=== PATIENT | male | born 1990 | race Caucasian/White ===

== ENCOUNTER 2024-04-24 09:45 | Outpatient (AMB) | payer MEDICAID, SELFPAY ==
--- NOTE | 2024-04-24 09:46 | MHC.PC.OV ---
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: No Allergies No Known Allergies Allergy (Verified 04/24/24 10:12) Medication List - Last Reviewed 04/25/24 by Iqra Mcpherson baclofen 20 mg PO TID carvedilol 6.25 mg PO BID gabapentin 200 mg PO BID Tobacco use date assessed: 04/24/24 Dental Screening Dental Screen Date: 04/24/24 Did you have a dental visit in the last 12 months?: No Did you have a dental problem in the last 6 months where you did not have access to dental care?: No Was dental information given to patient?: Patient has dentist HPI HPI Comments History of Present Illness Details 34-year-old male presents to [facility]. Prior PCP? - [facility] Last office visit/CPE/labs - About 3 years ago Acute issue(s) - Cocaine and fentanyl overdose in 2022 resulting in anoxic brain damage and neurological symptoms. He also suffered contracture of the right lower leg for which he was on baclofen and gabapentin until he ran out 2-3 weeks ago. He notes chronic right lower leg sharp pain and tightness. He wears a brace to his right lower leg and foot. - He reports anxiety symptoms with he attributes to not having a place to live. He currently lives with his friend and has been asked to move out next week. He has a case manager specialist who is currently helping to find housing. His case manager specialist also help with transportation to appointments. Medications - None Past Medical History - Hypertension, anemia, anoxic brain damage, dysphagia, spastic hemiplegia affecting right dominant side, contracture of right elbow, contracture of right lower leg, opiate dependence in remission, anxiety, depression, fracture nasal septum at childhood. Surgical History - Nasal septum repair at childhood Family History - Mom: HTN, HLD, alcohol abuse, biaateral breast cancer, substance abuse, - MGF: Alcohol abuse Social History - Smokes 4 cigarettes daily, has been smoking on and off since he was 17 yrs old . History of vaping, denies current use. Drinks 3-4 beers monthly. Smokes couple of hits of cannabis daily. - Has been making healthy dietary choices. Exercises routinely. Sleeps an average of 6-7 hours nightly. Health maintenance - Last eye exam was a few years ago. Refer to ophthalmology. - Last dental visit was several years ago. He has a dental appointment tomorrow; encourage to follow up. - Last tetanus vaccine was in 2023. - Has not been vaccinated for the flu this season; declines vaccination. Specialists - [facility] - [facility] physiatry [facility] Medical History (Updated 04/25/24 @ 19:34 by Omi Nath CNP) Depression Anxiety Prostate troubles Imbalance Memory loss Stroke High blood pressure Broken nose Family History (Updated 04/24/24 @ 10:14 by Iqra Mcpherson) Mother Alcohol abuse Substance abuse High blood pressure High cholesterol Cancer Maternal Grandfather Alcohol abuse Social History (Updated 04/24/24 @ 10:14 by Iqra Mcpherson) Housing: House Patient Tobacco Use Status: Current everyday Tobacco user Cigarettes Per Day: 4 e-Cigarette/Vaping Use: Former Use Second Hand Smoke Exposure: No Substance Use Type: Marijuana service: No Current occupational status: disabled Current occupational exposures/hazards: No Cognitive needs: Yes (cane) Hearing needs: No Vision needs: No Questionnaire PHQ-9 Over the last 2 weeks, how often have you been bothered by any of the following problems? 1. Little interest or pleasure in doing things: not at all 2. Feeling down, depressed, or hopeless: several days 3. Trouble falling or staying asleep, or sleeping too much: several days 4. Feeling tired or having little energy: several days 5. Poor appetite or overeating: not at all 6. Feeling bad about yourself - or that you are a failure or have let yourself or your family down: not at all 7. Trouble concentrating on things, such as reading the newspaper or watching television: not at all 8. Moving or speaking so slowly that other people could have noticed. Or the opposite - being so fidgety or restless that you have been moving around a lot more than usual: not at all 9. Thoughts that you would be better off or of hurting yourself in some way: not at all Total score: 3 Depression Screening Interpretation: Negative Depression Screening Done: Yes 29075 - PHQ-9 Billing: Yes Source: Developed by Drs. Macho Manzanares, Sara Orozco, Washington Cuevas and colleagues, with an educational lucius from [employer]. Thrive Questionnaire Date Thrive assessed: 04/24/24 I am a: Patient What is your living situation today?: I do not have a steady places to live Within the past 12 months, did the food you bought not last and you didn't have the money to get more?: Never true Within the past 12 months, did you worry whether your food would run out before you got money to buy more?: Often true Do you have trouble paying for medicines?: Yes Do you have trouble getting transportation to medical appointments?: Yes Do you have trouble paying your heating and electricity bill?: Yes Do you have trouble taking care of your child, family member or friend?: No Do you have trouble with day-to-day activities such as bathing, preparing meals, shopping, managing finances, etc.?: Yes Are you currently unemployed and looking for a job?: No Are you interested in more education?: Yes Please select the resources that you would like help with: Education Currently or been in a relationship where the following occur: No concerns reported THRIVE Score: 4 AUDIT C Alcohol Use Questionnaire (AUDIT-C) 1. How often do you have a drink containing alcohol?: Monthly or less 2. How many drinks containing alcohol do you have on a typical day when you are drinking?: 3 or 4 3. How often do you have six or more drinks on one occasion?: Never Total Score: 2 Score Reviewed/Action Taken: Yes CATALINO-7 AMB Questionnaire CATALINO-7 Date CATALINO - 7 assessed: 04/19/24 Feeling nervous, anxious, or on edge: 1 = Several days Not being able to stop or control worryin = Several days Worrying too much about different things: 1 = Several days Trouble relaxin = Several days Being so restless that it is hard to sit still: 1 = Several days Becoming easily annoyed or irritable: 1 = Several days Feeling afraid as if something awful might happen: 1 = Several days Total CATALINO-7 score (0-4 normal; 5-9 mild; 10-14 moderate; 15-21 severe): 7 Source: Developed by Drs. Macho Manzanares, Sara Orozco, Washington Cuevas and colleagues, with an educational lucius from [employer]. CATALINO-7 Assessment Billing CATALINO-7 Assessment Tool: CATALINO-7 Assessment 43703 Review of Systems Const Details: Denies chills, Denies fatigue, Denies fever(s), Denies headache(s) and Denies weakness HEENT Denies change in vision, Denies dizziness, Denies headache(s), Denies hearing loss, Denies nasal congestion, Denies sinus pain, Denies sinus pressure and Denies sore throat Card Denies chest pain, Denies lightheadedness, Denies dyspnea and Denies other (palpitations) Resp Denies cough, Denies dyspnea and Denies wheezing GI Denies abdominal pain, Denies melena, Denies hematochezia, Denies change in bowel habits, Denies dyspepsia and Denies nausea Denies hematuria and Denies dysuria Musc Reports as per HPI Skin/Breast Denies rash, Denies unusual bruising and Denies wounds Neuro Reports abnormal gait, Denies dizziness, Denies headache(s), Denies memory loss, Denies numbness, Denies Sensory deficit (Neuro), Denies tingling and Denies weakness Psych Denies anxiety, Denies depression and Denies memory loss Endo Denies cold intolerance, Denies fatigue, Denies heat intolerance, Denies polydipsia and Denies polyuria Rishi/Lymph Denies easy bleeding and Denies easy bruising Aller/Immun Denies wheezing Physical exam (Primary Care) Vital Signs: Last Vital Signs Temp 97.5 F 04/24/24 10:07 Pulse 104 H 04/24/24 10:07 Resp 16 04/24/24 10:07 BP 124/71 04/24/24 10:07 Pulse Ox 98 04/24/24 10:07 Oxygen Delivery Method Room Air 04/24/24 10:07 BMI result Body Mass Index 20.3 Tobacco/Smoking Status: Tobacco use Status Tobacco use date assessed 04/24/24 04/24/24 09:53 Patient Tobacco Use Status Current everyday Tobacco 04/24/24 10:14 e-Cigarette/Vaping Use Former Use 04/24/24 10:07 PHQ-9: PHQ-9 Score PHQ-9: Total score 3 04/25/24 11:29 Depression Screening Interpretation: Negative Thrive Assessment: Date of Thrive Assessment Date Thrive assessed 04/24/24 04/24/24 10:07 Currently or been in a relationship where the following occur: No concerns reported Const Other: General: no acute distress, well developed, alert and awake Nutritional Appearance: well nourished Orientation/consciousness: patient oriented x3 [facility] Head: Yes normocephalic and Yes atraumatic Ears: hearing grossly normal bilaterally and TM's normal bilaterally General nose exam: Normal external nose present and Normal nares present Mouth: Normal oral and palatal mucosa present and moist mucous membranes Teeth and gingiva: dentition normal Throat: Yes oropharynx normal Eyes Pupils: Equal, round and reactive pupils present and Pupil accommodation reflex normal EOM: EOMs intact bilaterally Neck Neck: Yes normal visual inspection, Yes no lymphadenopathy and Yes trachea midline Thyroid: Thyroid normal Carotids: no bruits Lymphatic: no lymphadenopathy noted Chest Chest palpation & inspection: normal inspection of the chest Resp Effort & Inspection: normal respiratory effort Auscultation: clear to auscultation bilaterally Cardio Rate: regular rate Rhythm: regular rhythm Heart sounds: S1 normal heart sound present, S2 normal heart sound present, no gallops, no murmurs and no rubs Bruits: no abdominal aortic bruits and no carotid bruits GI Palpation (GI): No Abdominal aortic bruit present, Soft to palpation, nontender, No hepatosplenomegaly present and No Rebound tenderness present Auscultation: normal bowel sounds General: Yes no CVA tenderness Back/Spine/Pelvis Back: no CVA tenderness Cervical Spine: cervical ROM normal and No Cervical spine tenderness Thoracic/Lumbar Spine: thoraco-lumbar ROM normal, No pain with thoraco-lumbar ROM, No thoracic spinal tenderness and No lumbar spinal tenderness Skin General: warm and dry. Normal skin color. Normal skin turgor Lesions: no lesions Rashes: no rashes Trauma: no lacerations or abrasions Wounds: no wounds Nails: normal Neuro General: patient oriented x3, gait normal and CN's II-XI intact bilaterally Cranial nerves: Yes Equal, round and reactive pupils present Cognition (Neuro): normal cognition Gait exam (Neuro): Slight unsteady gait present Motor exam (neuro): 5/5 motor strength present throughout Sensory Exam: No Sensory deficit (Neuro) Deep tendon reflexes (DTR's): Right patellar reflex intensity grade: 2+ and Left patellar reflex intensity grade: 2+ Extrem General: Right knee and ankle/foot tenderness, Yes normal to inspection, No edema and No calf tenderness Psych Appearance: grossly normal Affect: normal affect Attitude: cooperative Thought process: Normal thought process present Coding Level of Care Code New Pt Level 4 (28589) New Pt Prev Care 18-39yr([id number] Diagnoses Normal physical examination, routine Z00.00 Chronic pain of right lower extremity M79.604; G89.29 Cigarette smoker F17.210 Eye exam, routine Z01.00 Anxiety F41.9 Depression F32.A High blood pressure I10 Laboratory tests ordered as part of a complete physical exam (CPE) Z00.00 Additional Codes CATALINO-7 Assessment Billing - CATALINO-7 Assessment Tool: CATALINO-7 Assessment 98365 ([id number]) PHQ-9 - 67432 - PHQ-9 Billing: Yes ([id number]) Assessment & Plan Assessment & Plan (1) Normal physical examination, routine: Code(s): Z00.00 - Encounter for general adult medical examination without abnormal findings Category: Medical Plan: Normal physical exam except for slight unsteady gait/limp favoring his right lower extremity which he attributes to chronic right lower leg sharp pain and tightness secondary to contracture of the right lower leg from anoxic brain injury related to cocaine and fentanyl overdose in 2022. No overt injury or trauma. He wears a brace to his right lower extremity. He uses a cane for ambulation. Instructed on safety to prevent fall and encouraged to use his cane for ambulation at all times. He brought a handicap placard form for his PCP to be completed. He has a case manager specialist who drives him to his appointments. Will review and complete paperwork for a handicap placard. Encouraged to perform lab work to 3 days before next visit. Follow-up in 6 weeks for labs review or sooner with worsening or new symptoms. Verbalized understanding and agreed with treatment plan. (2) Chronic pain of right lower extremity: Code(s): M79.604 - Pain in right leg; G89.29 - Other chronic pain Category: Medical Plan: Chronic right lower leg sharp pain and tightness secondary to contracture of the right lower leg from anoxic brain injury related to cocaine and fentanyl overdose in 2022. No overt injury or trauma. He wears a brace to his right lower extremity. He uses a cane for ambulation. Baclofen and gabapentin verified from the pharmacy and restarted; encouraged to take as prescribed. Warm/cool compresses encouraged. Instructed on safety to prevent fall and encouraged to use his cane for ambulation at all times. Follow-up with [facility] and [facility] physiatry as planned. Return with worsening or new symptoms. Verbalized understanding and agreed with treatment plan. (3) Cigarette smoker: Code(s): F17.210 - Nicotine dependence, cigarettes, uncomplicated Category: Social Hx Plan: Smokes 4 cigarettes daily, has been smoking on and off since he was 17 yrs old. Instructed on the health risks and complications of cigarette smoking and encouraged smoking cessation. Declines medication treatment for smoking cessation. Advised to follow-up as needed. Verbalized understanding and agreed with the plan. (4) Eye exam, routine: Code(s): Z01.00 - Encounter for examination of eyes and vision without abnormal findings Category: Medical Plan: Last eye exam was a few years ago. Refer to ophthalmology. (5) Anxiety: Code(s): F41.9 - Anxiety disorder, unspecified Category: Medical Plan: Controlled. PHQ-9 score is normal. CATALINO-7 score revealed mild anxiety. Routine exercise encouraged. Follow-up with symptoms or concerns. Verbalized understanding and agreed with treatment plan. (6) Depression: Code(s): F32.A - Depression, unspecified Category: Medical Plan: Plan as above. (7) High blood pressure: Code(s): I10 - Essential (primary) hypertension Category: Medical Plan: Blood pressure is controlled. Carvediol as prescribed. Will continue to monitor. (8) Laboratory tests ordered as part of a complete physical exam (CPE): Code(s): Z00.00 - Encounter for general adult medical examination without abnormal findings Category: Medical Plan: Fasting labs ordered as part of a complete physical exam. Advised to fast for at least 10 hours before getting labs drawn. May drink water Verbalized understanding and agreed with treatment plan. Orders: Orders Complete Blood Count Auto Diff 04/24/24 Z00. - Encounter for general adult medical examination without abnormal findings Lipid Panel 04/24/24 Z. - Encounter for general adult medical examination without abnormal findings UA CC w/rflx Micro + Cult 04/24/24 Z00.00 - Encounter for general adult medical examination without abnormal findings Comprehensive [place]. Panel Fast 04/24/24 Z00. - Encounter for general adult medical examination without abnormal findings TSH reflex Free T4 04/24/24 Z. - Encounter for general adult medical examination without abnormal findings Referrals Ophthalmology Referral Z01.00 - Encounter for examination of eyes and vision without abnormal findings Medications: New carvedilol 6.25 mg PO BID 30 days 60 tabs 3RF baclofen 20 mg PO TID 30 days PRN 90 tabs 1RF muscle spasticity gabapentin 200 mg (2 x 100 mg) PO BID PRN 60 caps 0RF pain
[2024-04-24 10:07] VITALS: BP 124/71; PULSE 104; RESP 16; TEMP 36.4; O2SAT 98; BMI 20.3
== END 2024-04-24 10:51 | disposition home or self-care (01) ==
PROVIDERS: PCP Nurse Practitioner Family; Visit Provider Nurse Practitioner Family
DX: Z00.00 Encounter for general adult medical examination without abnormal findings (principal); M79.604 Pain in right leg; G89.29 Other chronic pain; F17.210 Nicotine dependence, cigarettes, uncomplicated; F41.9 Anxiety disorder, unspecified; F32.A Depression, unspecified; I10 Essential (primary) hypertension

== ENCOUNTER → 2024-04-24 09:45 | Outpatient (BNVA) | payer OTHER, SELFPAY | PROVIDERS: PCP Nurse Practitioner Family; Visit Provider Nurse Practitioner Family | DX: Z00.00 Encounter for general adult medical examination without abnormal findings (principal); M79.604 Pain in right leg; G89.29 Other chronic pain; F41.9 Anxiety disorder, unspecified; F32.A Depression, unspecified; I10 Essential (primary) hypertension; F17.210 Nicotine dependence, cigarettes, uncomplicated | CPT/HCPCS: 96127; 99202; 99385 ==

== ENCOUNTER 2024-05-24 08:40 | Outpatient (REF) | payer OTHER, SELFPAY ==
[2024-05-24 08:53] LABS: MANUAL DIFF FLAG NO
[2024-05-24 08:59] LABS: Basophils Percent Auto 0.5 % (0-2); Eosinophils Absolute Auto 0.1 X10*3/uL (0.0-0.4); Eosinophils Percent Auto 1.5 % (0-4); Hematocrit 43.5 % (42.0-52.0); Hemoglobin 14.5 g/dl (14.0-18.0); Imm Gran Abs Auto 0.02 X10*3/uL (0.00-0.03); Imm Gran Pct Auto 0.3 % (0.0-0.4); Lymphocytes Absolute Auto 1.3 X10*3/uL (1.2-4.9); Mean Corpuscular HGB Conc 33.3 g/dl (31.0-36.0); Mean Corpuscular Hemoglobin 29.7 pg (27.0-33.0); Mean Corpuscular Volume 89.1 fL (80.0-98.0); Mean Platelet Volume 10.4 fL (9.4-12.4); Monocytes Absolute Auto 0.4 X10*3/uL (0.1-1.2); Monocytes Percent Auto 5.9 % (2-11); Neutrophils Absolute Auto 4.1 x10*3/uL (2.0-8.3); Neutrophils Percent Auto 69.8 % (45-73); Platelet Count 209 X10*3/uL (160-400); Red Blood Count 4.88 X10*6/uL (4.60-5.80); Red Cell Distribution Width 11.9 % (11.0-16.0); White Blood Count 5.9 X10*3/uL (4.8-10.8)
[2024-05-24 09:25] LABS: Alanine Aminotransferase 10 U/L (0-40); Albumin Level 4.5 g/dL (3.5-5.0); Alkaline Phosphatase 68 U/L (39-117); Anion Gap 10 (12-20); Aspartate Amino Transferase 16 U/L (5-37); Bilirubin Total 0.2 mg/dL (0.0-1.0); Blood Urea Nitrogen 19 mg/dL (9-16); Calcium 9.4 mg/dL (8.4-10.2); Carbon Dioxide 23 mmol/L (22-29); Chloride 111 mmol/L (96-108); Cholesterol 160 mg/dL (<200); Estimated Glomerular Filt Rate > 60; Glucose Fasting 101 mg/dL (60-99); HDL Cholesterol 45 mg/dL (>40); LDL Cholesterol Calculated 102 mg/dL (<100); Potassium 4.3 mmol/L (3.3-5.1); Sodium 140 mmol/L (135-145); Triglycerides 67 mg/dL (<150)
[2024-05-24 09:45] LABS: TSH reflex Free T4 0.64 uIU/mL (0.32-4.0)
== END 2024-05-24 08:41 | disposition home or self-care (01) ==
LOC: HO.LAB 08:40
PROVIDERS: PCP Nurse Practitioner Family; Visit Provider Nurse Practitioner Family
DX: Z00.00 Encounter for general adult medical examination without abnormal findings (principal)
CPT/HCPCS: 36415; 80053; 80061; 84443; 85025

== ENCOUNTER 2024-06-05 10:45 | Outpatient (AMB) | payer OTHER, SELFPAY ==
--- NOTE | 2024-06-05 10:48 | A.OFFPC_ITS ---
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 Allergies No Known Allergies Allergy (Verified 06/05/24 11:01) Medication List - Last Reconciled 06/05/24 by Omi Nath CNP baclofen 20 mg PO TID PRN 30 days carvedilol 6.25 mg PO BID 30 days gabapentin 200 mg (2 x 100 mg) PO BID PRN Tobacco use date assessed: 06/05/24 Dental Screening Dental Screen Date: 06/05/24 Did you have a dental visit in the last 12 months?: Yes Did you have a dental problem in the last 6 months where you did not have access to dental care?: No Was dental information given to patient?: Patient has dentist HPI HPI Comments History of Present Illness Details 34-year-old male presents for hypertensi on and review of recent labs results. He has not taken carvedilol for the past 3 weeks. He wants to come off the medication. 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 He has been taking baclofen and gabapentin for chronic right lower extremity pain. He is followed by [facility] and [facility] physiatry. He notes that he had unprotected sex over 2 years ago and therefore wants STD testing. He has not been sexually active since the last time he had unprotected sex. He denies acute symptoms. [facility] Medical History (Updated 06/05/24 @ 11:25 by Omi Nath CNP) Depression Anxiety Prostate troubles Imbalance Memory loss Stroke High blood pressure Broken nose Family History (Updated 04/24/24 @ 10:14 by Iqra Mcpherson) Mother Alcohol abuse Substance abuse High blood pressure High cholesterol Cancer Maternal Grandfather Alcohol abuse Social History (Updated 04/24/24 @ 10:14 by Iqra Mcpherson) Housing: House Patient Tobacco Use Status: Current everyday Tobacco user Cigarettes Per Day: 4 e-Cigarette/Vaping Use: Former Use Second Hand Smoke Exposure: No Substance Use Type: Marijuana service: No Current occupational status: disabled Current occupational exposures/hazards: No Cognitive needs: Yes (cane) Hearing needs: No Vision needs: No Questionnaire Thrive Questionnaire Date Thrive assessed: 04/19/24 I am a: Patient What is your living situation today?: I have a place to live, but I am worried about losing it in the future Within the past 12 months, did the food you bought not last and you didn't have the money to get more?: Sometimes True Within the past 12 months, did you worry whether your food would run out before you got money to buy more?: Sometimes True Do you have trouble paying for medicines?: Yes Do you have trouble getting transportation to medical appointments?: Yes Do you have trouble paying your heating and electricity bill?: Yes Do you have trouble taking care of your child, family member or friend?: No Do you have trouble with day-to-day activities such as bathing, preparing meals, shopping, managing finances, etc.?: I choose not to answer this question Are you currently unemployed and looking for a job?: Yes Are you interested in more education?: Yes Currently or been in a relationship where the following occur: I choose not to answer THRIVE Score: 5 CATALINO-7 AMB Questionnaire CATALINO-7 Date CATALINO - 7 assessed: 04/19/24 Source: Developed by Drs. Macho Manzanares, Sara Orozco, Washington Cuevas and colleagues, with an educational lucius from [employer]. Review of Systems Const Details: Const Denies chills, Denies fatigue, Denies fever(s), Denies headache(s) and Denies weakness ENT Denies dizziness and Denies headache(s) Card Denies chest pain, Denies lightheadedness, Denies dyspnea and Denies other (Palpitations) Resp Denies cough, Denies dyspnea, Denies wheezing and Denies other ( shortness of breath) GI Denies abdominal pain, Denies melena, Denies hematochezia, Denies change in bowel habits, Denies dyspepsia and Denies nausea Denies hematuria and Denies dysuria Musc Denies abnormal gait, Denies myalgias, Denies arthralgias, Denies numbness and Denies tingling Skin/Breast Denies rash, Denies unusual bruising and Denies wounds Neuro Denies abnormal gait, Denies dizziness, Denies headache(s), Denies memory loss, Denies numbness, Denies Sensory deficit (Neuro), Denies tingling and Denies weakness Psych Denies anxiety, Denies depression, Denies memory loss Endo Denies cold intolerance, Denies fatigue, Denies heat intolerance, Denies polydipsia and Denies polyuria Aller/Immun Denies wheezing Physical exam (Primary Care) Tobacco/Smoking Status: Tobacco use Status Tobacco use date assessed 04/24/24 04/24/24 09:53 Patient Tobacco Use Status Current everyday Tobacco 04/24/24 10:14 e-Cigarette/Vaping Use Former Use 04/24/24 10:07 Thrive Assessment: Date of Thrive Assessment Date Thrive assessed 04/19/24 06/05/24 10:46 Currently or been in a relationship where the following occur: I choose not to answer Const Other: General: no acute distress and well developed Nutritional Appearance: well nourished Orientation/consciousness: patient oriented x3 HENMT Head: Yes normocephalic and Yes atraumatic Eyes General: appearance normal, both eyes and all related structures Pupils: Equal, round and reactive pupils present EOM: EOMs intact bilaterally Resp Effort & Inspection: normal respiratory effort Auscultation: clear to auscultation bilaterally Cardio Rate: regular rate Rhythm: regular rhythm Heart sounds: S1 normal heart sound present, S2 normal heart sound present, no gallops, no murmurs and no rubs GI Palpation (GI): No Abdominal aortic bruit present, Soft to palpation, nontender, No hepatosplenomegaly present and No Rebound tenderness present Auscultation: normal bowel sounds General: Yes no CVA tenderness Back/Spine/Pelvis Back: no CVA tenderness Cervical Spine: cervical ROM normal and No Cervical spine tenderness Thoracic/Lumbar Spine: thoraco-lumbar ROM normal, No pain with thoraco-lumbar ROM, No thoracic spinal tenderness and No lumbar spinal tenderness Extrem General: Yes normal to inspection, No edema and No calf tenderness Skin General: warm and dry. Normal skin color. Normal skin turgor Neuro General: patient oriented x3, gait normal and no focal neuro deficit Cranial nerves: Yes Equal, round and reactive pupils present Cognition (Neuro): normal cognition Gait exam (Neuro): Normal gait present Sensory Exam: No Sensory deficit (Neuro) Psych Appearance: grossly normal Affect: normal affect Attitude: cooperative Thought process: Normal thought process present Coding Level of Care Code Est Pt Level 3 (36001) Diagnoses High blood pressure I10 Elevated fasting glucose R73.01 Elevated LDL cholesterol level E78.00 Screen for STD (sexually transmitted disease) Z11.3 Assessment & Plan Assessment & Plan (1) High blood pressure: Code(s): I10 - Essential (primary) hypertension Category: Medical Plan: Blood pressure is 112/60, within goal of less than 140/90. He has not taken carvedilol for the past 3 weeks and wants to stop taking the medication. Carvedilol as prescribed in 2021 following cocaine and fentanyl overdose which resulted in anoxic brain damage and neurological symptoms. Will discontinue carvedilol at this time since his blood pressure is well controlled for the past 3 weeks without the medication. Low-sodium diet encouraged. Follow-up in 2 months for nurse visit for blood pressure check or sooner with symptoms or concerns. Schedule next physical exam. Verbalized understanding and agreed with treatment plan. (2) Elevated fasting glucose: Code(s): R73.01 - Impaired fasting glucose Category: Medical Plan: Recent fasting glucose is slightly elevated, 101. Healthy diet encouraged. Will recheck fasting glucose and make changes as needed. Verbalized understanding and agreed with the plan. (3) Elevated LDL cholesterol level: Code(s): E78.00 - Pure hypercholesterolemia, unspecified Category: Medical Plan: Recent LDL level is slightly elevated, 102. Advised to limit foods high in saturated fat and avoid foods high in trans fat. Routine exercise encouraged. Will monitor lipid panel levels periodically or if symptomatic. Verbalized understanding and agreed with the plan. (4) Screen for STD (sexually transmitted disease): Code(s): Z11.3 - Encounter for screening for infections with a predominantly sexual mode of transmission Category: Medical Plan: He had unprotected sexual intercourse over 2 years ago. However, he has not been sexually active since the last time he had unprotected sex. No acute symptoms. Safe sexual practices instructed and encouraged. Labs ordered for STD screening. Will review results and make changes as needed. Verbalized understanding and agreed with the treatment plan. Orders: Orders Glucose Fasting Today R73.01 - Impaired fasting glucose CT NG by PCR Today Z11.3 - Encounter for screening for infections with a predominantly sexual mode of transmission HIV Ab/Ag Today Z11.3 - Encounter for screening for infections with a predominantly sexual mode of transmission Hepatitis B,C Profile Today Z11.3 - Encounter for screening for infections with a predominantly sexual mode of transmission Syphilis Screen Today Z11.3 - Encounter for screening for infections with a predominantly sexual mode of transmission Medications: Discontinued carvedilol Discontinued Reason: Patient no longer taking 6.25 mg PO BID 30 days 60 tabs 3RF Patient Instructions: He did not get urinalysis lab work done; advised to get the test done during his next lab work. Verbalized understanding and agreed with the plan.
[2024-06-05 10:54] VITALS: BP 112/60; PULSE 84; RESP 16; TEMP 36.9; O2SAT 97; BMI 20.8
== END 2024-06-05 11:16 | disposition home or self-care (01) ==
PROVIDERS: PCP Nurse Practitioner Family; Visit Provider Nurse Practitioner Family
DX: I10 Essential (primary) hypertension (principal); R73.01 Impaired fasting glucose; E78.00 Pure hypercholesterolemia, unspecified; Z11.3 Encounter for screening for infections with a predominantly sexual mode of transmission

== ENCOUNTER → 2024-06-05 10:45 | Outpatient (BNVA) | payer OTHER, SELFPAY | PROVIDERS: PCP Nurse Practitioner Family; Visit Provider Nurse Practitioner Family | DX: I10 Essential (primary) hypertension (principal); R73.01 Impaired fasting glucose; E78.00 Pure hypercholesterolemia, unspecified | CPT/HCPCS: 99212 ==

== ENCOUNTER 2024-11-01 13:26 | Outpatient (AMB) | payer OTHER, SELFPAY ==
--- NOTE | 2024-11-01 13:27 | A.OFFPC_ITS ---
Vital Signs 11/01/24 13:32 Height 5 ft 7 in Weight 121 lb 2 oz BMI 19.0 BP 132/88 Blood Pressure Location Lt brachial Position Sitting Respiration 16 Pulse 86 Pulse Source Pulse Oximeter Temp 97.9 F Temp Source Temporal Artery Scan Pulse Oximetry (%) 98 Oxygen Delivery Method Room Air Intake Visit Reasons: anxiety and depression Intake Note: Jitendra presents in the office today for anxiety and depression Allergies No Known Allergies Allergy (Verified 11/01/24 13:30) Tobacco use date assessed: 11/01/24 Dental Screening Dental Screen Date: 11/01/24 Did you have a dental visit in the last 12 months?: Yes Did you have a dental problem in the last 6 months where you did not have access to dental care?: No Was dental information given to patient?: Patient has dentist HPI HPI Comments History of Present Illness Details 34-year-old male presents with complaint s anxiety and depression with has been ongoing for about a year. He reports severe anxiety and mild d epression. He notes that his dad from significant illness on 09/20/24; he had a close relationship with him. He attributes his anxiety and depressive symptoms to the recent of his dad, not having his own place to live, and chronic right knee pain and bottom foot pain. He has been living his his dad's friend for a few months. His social service director helped him obtained section 8. He has section 8 voucher, and actively looking for housing. He denies SI/HI/AH/VH. He wants medication for anxiety. He had psychotherapy in the past and found it helpful. He wants to connect to a therapist. [facility] Medical History (Updated 11/01/24 @ 15:02 by Omi Nath CNP) Depression Anxiety Prostate troubles Imbalance Memory loss Stroke High blood pressure Broken nose Family History Mother Alcohol abuse Substance abuse High blood pressure High cholesterol Cancer Maternal Grandfather Alcohol abuse Social History (Updated 11/01/24 @ 13:31 by Rebeca Pal MA) Housing: House Alcohol intake: current Patient Tobacco Use Status: Current everyday Tobacco user Cigarettes Per Day: 4 e-Cigarette/Vaping Use: Former Use Second Hand Smoke Exposure: No Substance Use Type: Marijuana service: No Current occupational status: disabled Current occupational exposures/hazards: No Cognitive needs: Yes (cane) Hearing needs: No Vision needs: No Questionnaire PHQ-9 Over the last 2 weeks, how often have you been bothered by any of the following problems? 1. Little interest or pleasure in doing things: several days 2. Feeling down, depressed, or hopeless: more than half the days 3. Trouble falling or staying asleep, or sleeping too much: nearly every day 4. Feeling tired or having little energy: more than half the days 5. Poor appetite or overeating: several days 6. Feeling bad about yourself - or that you are a failure or have let yourself or your family down: nearly every day 7. Trouble concentrating on things, such as reading the newspaper or watching television: several days 8. Moving or speaking so slowly that other people could have noticed. Or the opposite - being so fidgety or restless that you have been moving around a lot more than usual: several days 9. Thoughts that you would be better off or of hurting yourself in some way: not at all Total score: 14 Depression Screening Interpretation: Positive Depression Screening Done: Yes 70186 - PHQ-9 Billing: Yes Source: Developed by Drs. Macho Manzanares, Sara Orozco, Washington Cuevas and colleagues, with an educational lucius from [employer]. Thrive Questionnaire Date Thrive assessed: 04/19/24 CATALINO-7 AMB Questionnaire CATALINO-7 Date CATALINO - 7 assessed: 11/01/24 Feeling nervous, anxious, or on edge: 3 = Nearly every day Not being able to stop or control worryin = More than half the days Worrying too much about different things: 2 = More than half the days Trouble relaxin = More than half the days Being so restless that it is hard to sit still: 1 = Several days Becoming easily annoyed or irritable: 1 = Several days Feeling afraid as if something awful might happen: 2 = More than half the days Total CATALINO-7 score (0-4 normal; 5-9 mild; 10-14 moderate; 15-21 severe): 13 Source: Developed by Drs. Macho Manzanares, Sara Orozco, Washington Cuevas and colleagues, with an educational lucius from [employer]. CATALINO-7 Assessment Billing CATALINO-7 Assessment Tool: CATALINO-7 Assessment 47304 Review of Systems Const Details: Const Denies chills, Denies fatigue, Denies fever(s), Denies headache(s) and Denies weakness ENT Denies dizziness and Denies headache(s) Card Denies chest pain, Denies lightheadedness, Denies dyspnea and Denies other (Palpitations) Resp Denies cough, Denies dyspnea, Denies wheezing and Denies other ( shortness of breath) GI Denies abdominal pain, Denies melena, Denies hematochezia, Denies change in bowel habits, Denies dyspepsia and Denies nausea Denies hematuria and Denies dysuria Musc Repors as per HPI Skin/Breast Denies rash, Denies unusual bruising and Denies wounds Neuro Denies abnormal gait, Denies dizziness, Denies headache(s), Denies memory loss, Denies numbness, Denies Sensory deficit (Neuro), Denies tingling and Denies weakness Psych Reports anxiety, Reports depression, Denies memory loss Endo Denies cold intolerance, Denies fatigue, Denies heat intolerance, Denies polydipsia and Denies polyuria Aller/Immun Denies wheezing Physical exam (Primary Care) Vital Signs: Last Vital Signs Temp 97.9 F 11/01/24 13:32 Pulse 86 11/01/24 13:32 Resp 16 11/01/24 13:32 BP 132/88 11/01/24 13:32 Pulse Ox 98 11/01/24 13:32 Oxygen Delivery Method Room Air 11/01/24 13:32 BMI result Body Mass Index 19.0 Tobacco/Smoking Status: Tobacco use Status Tobacco use date assessed 11/01/24 11/01/24 13:37 Patient Tobacco Use Status Current everyday Tobacco 11/01/24 13:31 e-Cigarette/Vaping Use Former Use 11/01/24 13:31 PHQ-9: PHQ-9 Score PHQ-9: Total score 14 11/01/24 13:37 Depression Screening Interpretation: Positive Thrive Assessment: Date of Thrive Assessment Date Thrive assessed 04/19/24 11/01/24 13:28 Const Other: General: no acute distress and well developed Nutritional Appearance: well nourished Orientation/consciousness: patient oriented x3 HENMT Head: Yes normocephalic and Yes atraumatic Eyes General: appearance normal, both eyes and all related structures Pupils: Equal, round and reactive pupils present EOM: EOMs intact bilaterally Resp Effort & Inspection: normal respiratory effort Auscultation: clear to auscultation bilaterally Cardio Rate: regular rate Rhythm: regular rhythm Heart sounds: S1 normal heart sound present, S2 normal heart sound present, no gallops, no murmurs and no rubs GI Palpation (GI): No Abdominal aortic bruit present, Soft to palpation, nontender, No hepatosplenomegaly present and No Rebound tenderness present Auscultation: normal bowel sounds General: Yes no CVA tenderness Back/Spine/Pelvis Back: no CVA tenderness Cervical Spine: cervical ROM normal and No Cervical spine tenderness Thoracic/Lumbar Spine: thoraco-lumbar ROM normal, No pain with thoraco-lumbar ROM, No thoracic spinal tenderness and No lumbar spinal tenderness Extrem General: Yes normal to inspection, No edema and No calf tenderness Skin General: warm and dry. Normal skin color. Normal skin turgor Neuro General: patient oriented x3, gait unsteady and no focal neuro deficit Cranial nerves: Yes Equal, round and reactive pupils present Cognition (Neuro): normal cognition Gait exam (Neuro): Unsteady gait present Sensory Exam: No Sensory deficit (Neuro) Psych Appearance: grossly normal Mood: sad Affect: Constricted, tearful at times Attitude: cooperative Thought process: Normal thought process present Coding Level of Care Code Est Pt Level 4 (59071) Diagnoses Anxiety F41.9 Depression F32.A Grief F43.21 Chronic pain of right lower extremity M79.604; G89.29 Additional Codes CATALINO-7 Assessment Billing - CATALINO-7 Assessment Tool: CATALINO-7 Assessment 06857 ([id number]) PHQ-9 - 24203 - PHQ-9 Billing: Yes ([id number]) Assessment & Plan Assessment & Plan (1) Anxiety: Code(s): F41.9 - Anxiety disorder, unspecified Category: Medical Plan: 34-year-old male presents with complaints anxiety and depression with has been ongoing for about a year. He reports severe anxiety and mild depression. He notes that his dad from significant illness on 09/20/24; he had a close relationship with him. He attributes his anxiety and depressive symptoms to the recent of his dad, not having his own place to live, and chronic right knee pain and bottom foot pain. He has been living his his dad's friend for a few months. His social service director helped him obtained section 8. He has section 8 voucher, and actively looking for housing. He denies SI/HI/AH/VH. He wants medication for anxiety. He had psychotherapy in the past and found it helpful. He wants to connect to a therapist. PHQ-9 and CATALINO-7 scores revealed moderate depression and anxiety respectively. Hydroxyzine 25 mg twice daily as needed ordered to target anxiety; advised to take as prescribed. Instructed on the risks, benefits, and potential adverse reactions of the medication. Routine exercise encouraged. Message sent to the community navigator social service director to refer patient to a therapist. Follow-up in 1 month or sooner with worsening or new symptoms. Verbalized understanding and agreed with the plan. (2) Depression: Code(s): F32.A - Depression, unspecified Category: Medical Plan: Plan as above. (3) Grief: Code(s): F43.21 - Adjustment disorder with depressed mood Category: Medical Plan: Plan as above. (4) Chronic pain of right lower extremity: Code(s): M79.604 - Pain in right leg; G89.29 - Other chronic pain Category: Medical Plan: No edema, erythema, or overt injury or trauma noted. Ambulatory with his cane with unsteady gait favoring his right lower extremity. Naproxen 500 mg twice daily as needed ordered; advised to take as prescribed and with food. Instructed on the risks, benefits, and potential adverse reactions of the medication. Continue to take baclofen and gabapentin as prescribed. Continue follow-up with [facility] as planned. Verbalized understanding and agreed with the plan. Medications: New naproxen Take with food 500 mg PO BID PRN 60 tabs 3RF pain hydroxyzine HCl 25 mg PO BID PRN 60 tabs 1RF anxiety
[2024-11-01 13:32] VITALS: BP 132/88; PULSE 86; RESP 16; TEMP 36.6; O2SAT 98; BMI 19.0
== END 2024-11-01 14:51 | disposition home or self-care (01) ==
LOC: HO.HMCFM 13:26
PROVIDERS: PCP Nurse Practitioner Family; Visit Provider Nurse Practitioner Family
DX: F41.9 Anxiety disorder, unspecified (principal); F32.A Depression, unspecified; F43.21 Adjustment disorder with depressed mood; M79.604 Pain in right leg; G89.29 Other chronic pain

== ENCOUNTER → 2024-11-01 13:26 | Outpatient (BNVA) | payer OTHER, SELFPAY | PROVIDERS: PCP Nurse Practitioner Family; Visit Provider Nurse Practitioner Family | DX: F41.9 Anxiety disorder, unspecified (principal); F32.A Depression, unspecified; F43.21 Adjustment disorder with depressed mood; M79.604 Pain in right leg; G89.29 Other chronic pain; Z13.31 Encounter for screening for depression; Z13.39 Encounter for screening examination for other mental health and behavioral disorders | CPT/HCPCS: 96127; 99212 ==

== ENCOUNTER 2024-11-01 14:56 | Outpatient (REF) | payer OTHER, SELFPAY ==
[2024-11-02 03:21] LABS: Syphilis Screen Nonreactive (Nonreactive)
[2024-11-02 03:33] LABS: HBS Num1 427.68 mIU/mL (0-7.99); HBc Num1 0.06 S/CO (0.00-0.79); HBsAGNum1 0.42 S/CO (0.00-0.99); HIV Num 1 0.06 S/CO (0.00-0.99); Hepatitis B Surface Antigen Negative (Negative); ~HepC Num1 0.11 S/CO (0.00-0.79); ~Hepatitis B Surface Antibody REACTIVE (Nonreactive); ~Hepatitis C Antibody Nonreactive (Nonreactive)
== END 2024-11-01 14:57 | disposition home or self-care (01) ==
LOC: HO.WFDLDS 14:56
PROVIDERS: Visit Provider Nurse Practitioner Family
DX: R73.01 Impaired fasting glucose (principal); Z11.3 Encounter for screening for infections with a predominantly sexual mode of transmission
CPT/HCPCS: 36415; 82947; 86704; 86706; 86780; 86803; 87340; 87389